=== PATIENT | female | born 1960 | race Caucasian/White ===

== ENCOUNTER 2019-07-21 16:31 | Emergency (ER) | payer OTHER ==
[2019-07-21] MEDS: KETOROLAC 30 MG INJ IM (18:33)
== END 2019-07-21 19:08 | disposition home or self-care (01) ==
LOC: FTE 19:08
DX: S13.9XXA Sprain of joints and ligaments of unspecified parts of neck, initial encounter (principal); J45.909 Unspecified asthma, uncomplicated; S23.3XXA Sprain of ligaments of thoracic spine, initial encounter; V89.2XXA Person injured in unspecified motor-vehicle accident, traffic, initial encounter
CPT/HCPCS: 71045; 72040; 72100; 96372; 99284-25